=== PATIENT | female | born 1995 | race Caucasian/White ===

== ENCOUNTER 2017-10-12 11:12 | Emergency (ER) | payer BC ==
[2017-10-12 11:38] VITALS: BP 130/74; PULSE 78; O2SAT 97
--- NOTE | 2017-10-12 12:31 | ERPHSYRPT ---
- History of Present Illness Time Seen by Provider: 10/12/17 12:21 Historian: patient Exam Limitations: no limitations Patient Subjective Stated Complaint: nausea for two days. states has been taking ibuprophen 600 mg every six hours for three days for a toothache. denies any vomiting. also having small amt diarrhea today. Triage Nursing Assessment: ambulated to room per self. skin w/d, color normal, resp easy. abd soft, nontender. Physician History: The patient is a 22-year-old female who is breast-feeding her 1-1/2 month old son complaining that she developed nausea and diarrhea that began yesterday. She denies vomiting. She denies fever or chills. She has had 5 loose stools over the past 2 days. She is here visiting family members and would like something for the nausea that is compatible with breast-feeding. She does not want any lab work. Her past medical history is unremarkable. Timing/Duration: yesterday Activities at Onset: none Quality: aching Abdominal Pain Onset Location: epigastric Pain Radiation: no radiation Severity of Pain-Max: mild Severity of Pain-Current: mild Modifying Factors: Improves With: nothing Associated Symptoms: diarrhea, nausea, No vomiting Previous symptoms: no prior history Hx Tetanus, Diphtheria Vaccination/Date Given: No Hx Influenza Vaccination/Date Given: No Hx Pneumococcal Vaccination/Date Given: No - Review of Systems Constitutional: No Fever, No Chills Eyes: No Symptoms Ears, Nose, & Throat: No Symptoms Respiratory: No Cough, No Dyspnea Cardiac: No Chest Pain, No Edema, No Syncope Abdominal/Gastrointestinal: Nausea, Diarrhea, No Vomiting Genitourinary Symptoms: No Dysuria Musculoskeletal: No Back Pain, No Neck Pain Skin: No Rash Neurological: No Dizziness, No Focal Weakness, No Sensory Changes Psychological: No Symptoms Endocrine: No Symptoms Hematologic/Lymphatic: No Symptoms Immunological/Allergic: No Symptoms All Other Systems: Reviewed and Negative - Past Medical History Pertinent Past Medical History: No - Past Surgical History Past Surgical History: No - Social History Smoking Status: Never smoker Exposure to second hand smoke: Yes Drug Use: none Patient Lives Alone: No - Female History Hx Now: No (childbirth one month ago) - Nursing Vital Signs Nursing Vital Signs: Initial Vital Signs Temperature 97.9 F 10/12/17 11:18 Pulse Rate 78 10/12/17 11:18 Respiratory Rate 16 10/12/17 11:18 Blood Pressure 130/74 10/12/17 11:18 O2 Sat by Pulse Oximetry 97 10/12/17 11:18 Pain Scale Pain Intensity 2 - Physical Exam General Appearance: no apparent distress, alert Eye Exam: PERRL/EOMI, eyes nml inspection Ears, Nose, Throat Exam: normal ENT inspection, pharynx normal, moist mucous membranes Neck Exam: normal inspection, non-tender, supple, full range of motion Respiratory Exam: normal breath sounds, lungs clear, No respiratory distress Cardiovascular Exam: regular rate/rhythm, normal heart sounds Gastrointestinal/Abdomen Exam: soft, No tenderness, No mass Pelvic Exam: not done Rectal Exam: not done Back Exam: normal inspection, normal range of motion, No CVA tenderness, No vertebral tenderness Extremity Exam: normal inspection, normal range of motion, pelvis stable Neurologic Exam: alert, oriented x 3, cooperative, normal mood/affect, nml cerebellar function, sensation nml, No motor deficits Skin Exam: normal color, warm, dry SpO2 Interpretation: normal SpO2: 97 Oxygen Delivery: Room Air - Progress Progress: improved Progress Note: 10/12/17 12:33 pt declines lab draw. pt given zofran 4 mg ODT. Counseled pt/family regarding: diagnosis - Departure Time of Disposition: 12:34 Departure Disposition: Home Clinical Impression: Gastroenteritis Condition: Stable Critical Care Time: No Referrals: JAIMIE BOUCHER [Primary Care Provider] - Additional Instructions: You have gastroenteritis. You were given Zofran 4 mg ODT in the ER. Take Zofran 4 mg ODT every 6 hours as needed. Take Tylenol as needed for pain. Follow up with your primary medical doctor as needed. Prescriptions: Ondansetron ODT 4 MG [Zofran Odt 4 mg] 1 tab PO Q6H PRN PRN #6 tab.rapdis PRN Reason: Nausea/Vomiting
[2017-10-12] MEDS ORDERED: ZOFRAN ODT 4 MG ONE (12:43)
[2017-10-12] MEDS: ZOFRAN ODT 4 MG PO ONE (12:44)
== END 2017-10-12 12:48 | disposition home or self-care (01) ==
LOC: ED 11:12
DX: K52.9 Noninfective gastroenteritis and colitis, unspecified (principal)
CPT/HCPCS: 99283; Q0162

== ENCOUNTER 2021-08-23 11:58 | Emergency (ER) | payer OTHER ==
[2021-08-23 12:08] VITALS: O2SAT 98
[2021-08-23] MEDS ORDERED: KEFLEX 250 MG/5 ML SUSP PO ONE (12:20)
[2021-08-23] MEDS ORDERED: NORCO 5/325 MG PO ONE (12:20)
--- NOTE | 2021-08-23 12:28 | ERPHSYRPT ---
- History of Present Illness Time Seen by Provider: 08/23/21 12:23 Source: patient Exam Limitations: no limitations Patient Subjective Stated Complaint: Pt states "This has been going on for a couple weeks, my upper left jaw is hurting and the pain was really bad then went away and now it is worse. I am not sure if it is my wisdom teeth or not." Triage Nursing Assessment: Pt presented alert and oriented X 3, skin wpd Pt ambulates with an upright steady gait, able to speak in clear full sentences pt in no apparent respiratory distress. Pt left upper jaw slightly red, swollen and tender. Physician History: This is a 26-year-old white female who has had left jaw pain for approximately 2 weeks. It would intermittently improve over the last couple weeks but then recur. This morning, the pain was much more severe and there was associated left jaw swelling. She has an appointment to see a dentist but that is on October 01, 2021. Patient is not allergic to any antibiotics or pain medicine. She has been taking ibuprofen and it is only mildly helping. Timing/Duration: gradual onset, weeks (2) Severity: moderate ENT Location: facial (left) Prearrival Treatment: over the counter meds Modifying Factors: Improves With: nothing Associated Symptoms: ear pain (L), tooth pain (Left upper molars), other (Left jaw pain) Allergies/Adverse Reactions: Red food dye Adverse Reaction (Severe, Uncoded 07/20/21 16:05) Rash and face swelling Hx Tetanus, Diphtheria Vaccination/Date Given: No Hx Influenza Vaccination/Date Given: No Hx Pneumococcal Vaccination/Date Given: No Immunizations Up to Date: Yes Travel Risk - International Travel Have you traveled outside of the country in past 3 weeks: No - Coronavirus Screening Are you exhibiting any of the following symptoms?: No Close contact with a COVID-19 positive Pt in past 14-21 Days: No - Vaccine Status Have you recieved a Covid-19 vaccination: Yes 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: [employer] - Vaccination Dates Date of 2cond Vaccination (if applicable): 2020 - Review of Systems Constitutional: No Symptoms Eyes: No Symptoms Ears, Nose, & Throat: Ear Pain (Left), Other (Left jaw pain) Respiratory: No Symptoms Cardiac: No Symptoms Abdominal/Gastrointestinal: No Symptoms Genitourinary Symptoms: No Symptoms Musculoskeletal: No Symptoms Skin: No Symptoms Neurological: No Symptoms Psychological: No Symptoms Endocrine: No Symptoms Hematologic/Lymphatic: No Symptoms Immunological/Allergic: No Symptoms All Other Systems: Reviewed and Negative - Past Medical History Pertinent Past Medical History: No Neurological History: No Pertinent History ENT History: No Pertinent History Cardiac History: No Pertinent History Respiratory History: No Pertinent History Endocrine Medical History: No Pertinent History Musculoskeletal History: No Pertinent History GI Medical History: No Pertinent History History: No Pertinent History Psycho-Social History: No Pertinent History Female Reproductive Disorders: No Pertinent History - Past Surgical History Past Surgical History: No Neuro Surgical History: No Pertinent History Cardiac: No Pertinent History Respiratory: No Pertinent History Gastrointestinal: No Pertinent History Genitourinary: No Pertinent History Musculoskeletal: No Pertinent History Female Surgical History: No Pertinent History - Social History Smoking Status: Current every day smoker How long have you smoked: 5 YEARS Exposure to second hand smoke: Yes Drug Use: none Patient Lives Alone: No - Female History Hx Last Menstrual Period: 08/18/2021 Hx Now: No - Nursing Vital Signs Nursing Vital Signs: Initial Vital Signs Temperature 97.8 F 08/23/21 12:03 Pulse Rate 100 H 08/23/21 12:03 Respiratory Rate 20 08/23/21 12:03 Blood Pressure 147/107 08/23/21 12:03 O2 Sat by Pulse Oximetry 98 08/23/21 12:03 Pain Scale Pain Intensity [Left Upper Jaw 7 ] Pain Intensity 7 - Physical Exam General Appearance: no apparent distress, alert, anxiety Eye Exam: bilateral eye: normal inspection, PERRL, EOMI Ear Exam: bilateral ear: auricle normal, canal normal, TM normal Nasal Exam: normal inspection Throat Exam: pharynx normal, dental tenderness (Left upper molars) Neck Exam: normal inspection, non-tender, supple, full range of motion, trachea midline Cardiovascular/Respiratory Exam: chest non-tender, no respiratory distress Abdominal Exam: non-tender Neurologic Exam: alert, oriented x 3, 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 Follow-up with a dentist for definitive care. Take your antibiotics as prescribed. Prescriptions: Hydrocodone/APAP 5/325 [[place] 5/325 mg] 1 each PO Q8H PRN PRN #6 tablet MDD 3 PRN Reason: Pain Cephalexin Mh 500 mg [Keflex 500 mg] 500 mg PO TID #21 cap
[2021-08-23] MEDS ORDERED: NORCO 5/325 MG ONE (12:34)
[2021-08-23] MEDS ORDERED: KEFLEX 250 MG/5 ML SUSP ONE (12:34)
[2021-08-23] MEDS ORDERED: KEFLEX 500 MG PO ONE (12:35)
[2021-08-23] MEDS ORDERED: KEFLEX 500 MG ONE (12:38)
[2021-08-23 12:44] VITALS: BP 124/87; PULSE 86
== END 2021-08-23 12:44 | disposition home or self-care (01) ==
LOC: ED 11:58
DX: K08.89 Other specified disorders of teeth and supporting structures (principal); R68.84 Jaw pain; R60.0 Localized edema; Z72.0 Tobacco use; Z79.891 Long term (current) use of opiate analgesic
CPT/HCPCS: 99283; A9270-GY

== ENCOUNTER 2023-02-24 04:51 | Emergency (ER) | payer MEDICAID, OTHER ==
[2023-02-24 04:57] VITALS: TEMP 98.1
[2023-02-24] MEDS ORDERED: Zofran 4 MG/2 ML VIAL IV ONE (05:50)
--- NOTE | 2023-02-24 05:50 | ERPHSYRPT ---
- History of Present Illness Source: patient Exam Limitations: no limitations Patient Subjective Stated Complaint: light headed, dizzy, nauseated, coughing, diarrhea that started few weeks ago but the dizziness started 4 hours ago. states comes in waves. Triage Nursing Assessment: Patient states that for the last 4 hours she has been experiencing feeling of light headedness, dizziness, nausea, and diarrhea. Took a Tums at home with no relief. States has been feeling congested with coughing and shortness of breath for last 2 weeks that comes and goes. Timing/Duration: today Severity: moderate Modifying Factors: Improves With: nothing Associated Symptoms: denies symptoms Hx Tetanus, Diphtheria Vaccination/Date Given: No Hx Influenza Vaccination/Date Given: No Hx Pneumococcal Vaccination/Date Given: No Immunizations Up to Date: No <HINA LUKE - Last Filed: 02/24/23 06:40> <JOHN DIAZ - Last Filed: 02/24/23 09:00> - History of Present Illness Time Seen by Provider: 02/24/23 05:00 Physician History: Patient is a 27-year-old female presents to our ED via EMS for evaluation of acute onset dizziness nausea heart palpitations shortness of breath that started at 4 AM this morning. Patient states that her dizziness is constant. However she feels that it is somewhat exacerbated with head motion. No focal or lateralizing symptoms. Symptoms are moderate in intensity. No specific worsening or improving factors. Patient otherwise feels well. She voices no other complaints or concerns at this time. Portions of this note were created with voice recognition technology. There may be grammatical, spelling, punctuation or sound alike errors (HINA LUKE) Allergies/Adverse Reactions: Red food dye Adverse Reaction (Severe, Uncoded 02/24/23 05:14) Rash and face swelling Travel Risk - International Travel Have you traveled outside of the country in past 3 weeks: No - Coronavirus Screening Symptoms: Cough: New Onset, Shortness of Breath, Vomiting/Diarrhea Close contact with a COVID-19 positive Pt in past 14-21 Days: No - Vaccine Status Have you recieved a Covid-19 vaccination: Yes Receiving Checker: Unknown - Vaccination Dates Date of 2cond Vaccination (if applicable): n/a Dates if Unknown: N/a <HINA LUKE - Last Filed: 02/24/23 06:40> - Review of Systems Constitutional: No Symptoms, No Fever, No Chills Eyes: No Symptoms Ears, Nose, & Throat: No Symptoms Respiratory: No Symptoms, No Cough, No Dyspnea Cardiac: No Symptoms, No Chest Pain, No Edema, No Syncope Abdominal/Gastrointestinal: No Symptoms, No Abdominal Pain, No Nausea, No Vomiting, No Diarrhea Genitourinary Symptoms: No Symptoms, No Dysuria Musculoskeletal: No Symptoms, No Back Pain, No Neck Pain Skin: No Symptoms, No Rash Neurological: No Symptoms, No Dizziness, No Focal Weakness, No Sensory Changes Psychological: No Symptoms Endocrine: No Symptoms Hematologic/Lymphatic: No Symptoms Immunological/Allergic: No Symptoms All Other Systems: Reviewed and Negative <HINA LUKE - Last Filed: 02/24/23 06:40> - Past Medical History Pertinent Past Medical History: Yes Neurological History: No Pertinent History ENT History: No Pertinent History Cardiac History: No Pertinent History Respiratory History: No Pertinent History Endocrine Medical History: No Pertinent History Musculoskeletal History: No Pertinent History GI Medical History: GERD History: No Pertinent History Psycho-Social History: Anxiety Female Reproductive Disorders: No Pertinent History Other Medical History: Failed a Tilt table cardiac test - Past Surgical History Past Surgical History: No Neuro Surgical History: No Pertinent History Cardiac: No Pertinent History Respiratory: No Pertinent History Gastrointestinal: No Pertinent History Genitourinary: No Pertinent History Musculoskeletal: No Pertinent History Female Surgical History: No Pertinent History - Social History Smoking Status: Former smoker How long have you smoked: 5 YEARS Exposure to second hand smoke: Yes Drug Use: none Patient Lives Alone: No - Female History Hx Last Menstrual Period: 02/23/23 Hx Now: No <HINA LUKE - Last Filed: 02/24/23 06:40> - Physical Exam General Appearance: no apparent distress, alert Eye Exam: PERRL/EOMI, eyes nml inspection Ears, Nose, Throat Exam: normal ENT inspection, TMs normal, pharynx normal, mois t mucous membranes Neck Exam: normal inspection, non-tender, supple, full range of motion Respiratory Exam: normal breath sounds, lungs clear, No respiratory distress Cardiovascular Exam: regular rate/rhythm, normal heart sounds, normal peripheral pulses Gastrointestinal/Abdomen Exam: soft, normal bowel sounds, No tenderness, No mass Back Exam: normal inspection, normal range of motion, No CVA tenderness, No vertebral tenderness Extremity Exam: normal inspection, normal range of motion, pelvis stable Neurologic Exam: alert, oriented x 3, cooperative, normal mood/affect, nml cerebellar function, nml station & gait, sensation nml, No motor deficits Skin Exam: normal color, warm, dry, No rash Lymphatic Exam: No adenopathy SpO2 Interpretation: normal SpO2: 98 O2 Delivery: Room Air <[facility] Filed: 02/24/23 06:40> - Nursing Vital Signs Nursing Vital Signs: Initial Vital Signs Temperature 98.1 F 02/24/23 04:56 Pulse Rate 109 H 02/24/23 04:56 Respiratory Rate 18 02/24/23 04:56 Blood Pressure 135/90 02/24/23 04:56 O2 Sat by Pulse Oximetry 98 02/24/23 04:56 Pain Scale Pain Intensity 0 - Course Nursing assessment & vital signs reviewed: Yes EKG Interpreted by Me: RATE (110), Sinus Tach, NORMAL AXIS, NORMAL INTERVALS [facility] Filed: 02/24/23 06:40> Ordered Tests: Active Orders 24 hr Category Date Time Status Harmonica Maker STAT Care 02/24/23 05:38 Active IV Insertion STAT Care 02/24/23 05:[address] ANGIOGRAPHY NECK [CT] Stat Exams 02/24/23 05:43 Completed CTA HEAD W AND/OR WO CONTRAST [CT] Stat Exams 02/24/23 05:41 Completed CBC W DIFF Stat Lab 02/24/23 05:50 Completed CMP Stat Lab 02/24/23 05:50 Completed D-DIMER QUANTITATIVE Stat Lab 02/24/23 05:50 Completed HCG QUALITATIVE, URINE Stat Lab 02/24/23 05:57 Completed TROPONIN Q4H Lab 02/24/23 05:50 Completed TROPONIN Q4H Lab 02/24/23 09:45 Ordered TROPONIN Q4H Lab 02/24/23 13:45 Ordered Urine Triage Profile Stat Lab 02/24/23 05:57 Completed Medication Summary Discontinued Medications Generic Name Dose Route Start Last Admin Trade Name Freq PRN Reason Stop Dose Admin Sodium Chloride 1,000 mls @ 999 mls/hr 02/24/23 06:42 02/24/23 08:06 Sodium Chloride 0.9% 1000 Ml IV 02/24/23 07:42 Infused .Q1H1M STA Infusion Sodium Chloride Confirm 02/24/23 06:57 Sodium Chloride 0.9% 1000 Ml Administered 02/24/23 06:58 Dose 1,000 mls @ ud .ROUTE .STK-MED ONE Meclizine HCl 25 mg 02/24/23 05:51 02/24/23 06:20 Meclizine Hcl 25 Mg Tablet PO 02/24/23 05:52 25 mg STAT ONE Administration Meclizine HCl Confirm 02/24/23 06:18 Meclizine Hcl 25 Mg Tablet Administered 02/24/23 06:19 Dose 25 mg .ROUTE .STK-MED ONE Ondansetron HCl 4 mg 02/24/23 05:50 02/24/23 06:20 Ondansetron Hcl 4 Mg/2 Ml Vial IV 02/24/23 05:51 4 mg STAT ONE Administration Ondansetron HCl Confirm 02/24/23 06:18 Ondansetron Hcl 4 Mg/2 Ml Vial Administered 02/24/23 06:19 Dose 4 mg .ROUTE .STK-MED ONE Lab/Rad Data: Laboratory Result Diagrams 02/24/23 05:50 02/24/23 05:50 Laboratory Results 02/24/23 02/24/23 02/24/23 Range/Units 05:58 05:57 05:57 WBC (4.0-10.5) x10^3/uL RBC (4.1-5.4) x10^6/uL Hgb (12.0-16.0) g/dL Hct (35-47) % MCV (78-100) fL MCH (26-32) pg MCHC (32-36) g/dL RDW (11.5-14.0) % Plt Count (150-450) x10^3/uL MPV (7.5-11.0) fL Gran % (36.0-66.0) % Immature Gran % (Auto) (0.00-0.4) % Nucleat RBC Rel Count (0.00-0.1) % Eos # (Auto) (0-0.5) x10^3/uL Immature Gran # (Auto) (0.00-0.03) x10^3u/L Absolute Lymphs (auto) (1.0-4.6) x10^3/uL Absolute Monos (auto) (0.0-1.3) x10^3/uL Absolute Nucleated RBC (0.00-0.01) x10^3u/L Lymphocytes % (24.0-44.0) % Monocytes % (0.0-12.0) % Eosinophils % (0.00-5.0) % Basophils % (0.0-0.4) % Absolute Granulocytes (1.4-6.9) x10^3/uL Basophils # (0-0.4) x10^3/uL D-Dimer (0.0-0.50) mg/L Sodium (137-145) mmol/L Potassium (3.5-5.1) mmol/L Chloride (98-107) mmol/L Carbon Dioxide (22-30) mmol/L Anion Gap (5-15) MEQ/L BUN (7-17) mg/dL Creatinine (0.52-1.04) mg/dL Estimated GFR ML/MIN Glucose (74-106) mg/dL Calcium (8.4-10.2) mg/dL Total Bilirubin (0.2-1.3) mg/dL AST (14-36) U/L ALT (0-35) U/L Alkaline Phosphatase (38-126) U/L Troponin I (0.000-0.034) ng/mL Serum Total Protein (6.3-8.2) g/dL Albumin (3.5-5.0) g/dL Urine HCG, Qual NEGATIVE (NEGATIVE) Urine Opiates Level NEGATIVE (NEGATIVE) Ur Methadone NEGATIVE (NEGATIVE) Urine Barbiturates NEGATIVE (NEGATIVE) Ur Phencyclidine (PCP) NEGATIVE (NEGATIVE) Urine Amphetamine NEGATIVE (NEGATIVE) U Benzodiazepine Level NEGATIVE (NEGATIVE) Urine Cocaine NEGATIVE (NEGATIVE) Urine Marijuana (THC) NEGATIVE (NEGATIVE) Influenza Type A Ag NEGATIVE (NEGATIVE) Influenza Type B Ag NEGATIVE (NEGATIVE) RSV (PCR) NEGATIVE (NEGATIVE) SARS-CoV-2 (PCR) NEGATIVE (NEGATIVE) 02/24/23 02/24/23 02/24/23 Range/Units 05:50 05:50 05:50 WBC (4.0-10.5) x10^3/uL RBC (4.1-5.4) x10^6/uL Hgb (12.0-16.0) g/dL Hct (35-47) % MCV (78-100) fL MCH (26-32) pg MCHC (32-36) g/dL RDW (11.5-14.0) % Plt Count (150-450) x10^3/uL MPV (7.5-11.0) fL Gran % (36.0-66.0) % Immature Gran % (Auto) (0.00-0.4) % Nucleat RBC Rel Count (0.00-0.1) % Eos # (Auto) (0-0.5) x10^3/uL Immature Gran # (Auto) (0.00-0.03) x10^3u/L Absolute Lymphs (auto) (1.0-4.6) x10^3/uL Absolute Monos (auto) (0.0-1.3) x10^3/uL Absolute Nucleated RBC (0.00-0.01) x10^3u/L Lymphocytes % (24.0-44.0) % Monocytes % (0.0-12.0) % Eosinophils % (0.00-5.0) % Basophils % (0.0-0.4) % Absolute Granulocytes (1.4-6.9) x10^3/uL Basophils # (0-0.4) x10^3/uL D-Dimer 0.26 (0.0-0.50) mg/L Sodium 139 (137-145) mmol/L Potassium 3.7 (3.5-5.1) mmol/L Chloride 104 (98-107) mmol/L Carbon Dioxide 23 (22-30) mmol/L Anion Gap 15.7 H (5-15) MEQ/L BUN 13 (7-17) mg/dL Creatinine 0.78 (0.52-1.04) mg/dL Estimated GFR 108.0 ML/MIN Glucose 100 (74-106) mg/dL Calcium 10.0 (8.4-10.2) mg/dL Total Bilirubin 0.90 (0.2-1.3) mg/dL AST 22 (14-36) U/L ALT 15 (0-35) U/L Alkaline Phosphatase 86 (38-126) U/L Troponin I < 0.012 (0.000-0.034) ng/mL Serum Total Protein 8.2 (6.3-8.2) g/dL Albumin 4.6 (3.5-5.0) g/dL Urine HCG, Qual (NEGATIVE) Urine Opiates Level (NEGATIVE) Ur Methadone (NEGATIVE) Urine Barbiturates (NEGATIVE) Ur Phencyclidine (PCP) (NEGATIVE) Urine Amphetamine (NEGATIVE) U Benzodiazepine Level (NEGATIVE) Urine Cocaine (NEGATIVE) Urine Marijuana (THC) (NEGATIVE) Influenza Type A Ag (NEGATIVE) Influenza Type B Ag (NEGATIVE) RSV (PCR) (NEGATIVE) SARS-CoV-2 (PCR) (NEGATIVE) 02/24/23 Range/Units 05:50 WBC 13.2 H (4.0-10.5) x10^3/uL RBC 4.66 (4.1-5.4) x10^6/uL Hgb 13.3 (12.0-16.0) g/dL Hct 40.3 (35-47) % MCV 86.5 (78-100) fL MCH 28.5 (26-32) pg MCHC 33.0 (32-36) g/dL RDW 11.9 (11.5-14.0) % Plt Count 386 (150-450) x10^3/uL MPV 9.6 (7.5-11.0) fL Gran % 79.0 H (36.0-66.0) % Immature Gran % (Auto) 0.4 (0.00-0.4) % Nucleat RBC Rel Count 0.0 (0.00-0.1) % Eos # (Auto) 0.06 (0-0.5) x10^3/uL Immature Gran # (Auto) 0.05 H (0.00-0.03) x10^3u/L Absolute Lymphs (auto) 1.88 (1.0-4.6) x10^3/uL Absolute Monos (auto) 0.74 (0.0-1.3) x10^3/uL Absolute Nucleated RBC 0.00 (0.00-0.01) x10^3u/L Lymphocytes % 14.2 L (24.0-44.0) % Monocytes % 5.6 (0.0-12.0) % Eosinophils % 0.5 (0.00-5.0) % Basophils % 0.3 (0.0-0.4) % Absolute Granulocytes 10.45 H (1.4-6.9) x10^3/uL Basophils # 0.04 (0-0.4) x10^3/uL D-Dimer (0.0-0.50) mg/L Sodium (137-145) mmol/L Potassium (3.5-5.1) mmol/L Chloride (98-107) mmol/L Carbon Dioxide (22-30) mmol/L Anion Gap (5-15) MEQ/L BUN (7-17) mg/dL Creatinine (0.52-1.04) mg/dL Estimated GFR ML/MIN Glucose (74-106) mg/dL Calcium (8.4-10.2) mg/dL Total Bilirubin (0.2-1.3) mg/dL AST (14-36) U/L ALT (0-35) U/L Alkaline Phosphatase (38-126) U/L Troponin I (0.000-0.034) ng/mL Serum Total Protein (6.3-8.2) g/dL Albumin (3.5-5.0) g/dL Urine HCG, Qual (NEGATIVE) Urine Opiates Level (NEGATIVE) Ur Methadone (NEGATIVE) Urine Barbiturates (NEGATIVE) Ur Phencyclidine (PCP) (NEGATIVE) Urine Amphetamine (NEGATIVE) U Benzodiazepine Level (NEGATIVE) Urine Cocaine (NEGATIVE) Urine Marijuana (THC) (NEGATIVE) Influenza Type A Ag (NEGATIVE) Influenza Type B Ag (NEGATIVE) RSV (PCR) (NEGATIVE) SARS-CoV-2 (PCR) (NEGATIVE) - Progress Progress: improved Counseled pt/family regarding: lab results, diagnosis <HINA LUKE - Last Filed: 02/24/23 06:40> <JOHN DIAZ - Last Filed: 02/24/23 09:00> - Progress Progress Note: Patient is a 27-year-old female presents to the emergency department for evaluation of acute onset dizziness heart palpitations shortness of breath. Physical exam essentially nonremarkable. CBC reveals a leukocytosis of 13.2. However no obvious nidus of infection observed. No fever. CMP nonremarkable. D-dimer negative. CTA head neck pending. Patient will have telemetry neuro consultation after imaging study results. Patient given meclizine for dizziness and Zofran for nausea. IV fluids to be administered after CTA. Is currently the change of shift. Patient will be endorsed to incoming physician Dr. Diaz for final disposition. Portions of this note were created with voice recognition technology. There may be grammatical, spelling, punctuation or sound alike errors Complexity of problem addressed is moderate acute complicated Critical care time Complexity of data reviewed and analyzed is extensive. Test ordered test reviewed. Results analyzed and correlated clinically with history and physical examination. However imaging study pending. Telemetry neuro consultation pending as well Risk of complication and or risk of morbidity/mortality of patient management is moderate. Patient endorsed to Dr. Ngo. Vital stable at time of endorsement. Time spent to transfer care is approximately 10 minutes. Plan of care discussed with patient and established for shared decision making. Final disposition pending. However patient has no social determinants of health present to impede follow- up. Portions of this note were created with voice recognition technology. There may be grammatical, spelling, punctuation or sound alike errors 02/24/23 06:41 (HINA LUKE) 02/24/23 08:57 I spoke with the teleneurologist and I reviewed the results of the CTA which she had not known. She believes the patient has peripheral vertigo and not any issue centrally. She did say she cannot rule out an entity such as MS but the neurologist feels that the patient does not require inpatient work-up. Patient is to follow-up with her primary care provider. We will remotely send a prescription for Zofran and meclizine to her pharmacy. Patient currently is at baseline with no complaints or evidence of any nausea or dizziness (JOHN DIAZ) Medical Desision Making - Diagnostic Testing Diagnostic test were ordered, analyzed, and reviewed by me: Yes Radiological Interpretation: Reviewed by me, Teleradiologist Report - Risk of complications The pt has a mod risk of morbidity or mortality based on: Need for prescription drug management <JOHN DIAZ - Last Filed: 02/24/23 09:00> - Departure Critical Care Time: No <HINA LUKE - Last Filed: 02/24/23 06:40> <JOHN DIAZ - Last Filed: 02/24/23 09:00> - Departure Clinical Impression: Dizziness, SOB (shortness of breath), Heart palpitations, Leukocytosis Condition: Stable Referrals: DOCTOR,NO FAMILY [Primary Care Provider] - Follow up/PCP as directed CLINT CARR MD [ACTIVE STAFF] - Follow up/PCP as directed Prescriptions: Ondansetron ODT 4 MG [Zofran Odt 4 mg] 4 mg PO Q6H PRN PRN #10 tablet PRN Reason: Vomiting Meclizine HCl 25 mg [Antivert 25 mg] 25 mg PO Q8H PRN #10 tablet PRN Reason: Dizziness
[2023-02-24] MEDS ORDERED: ANTIVERT 25 MG PO ONE (05:51)
[2023-02-24 06:01] LABS: Absolute Neutrophil Ct (ANC) 10.45 x10^3/uL (1.4-6.9); BASOPHIL % 0.3 % (0.0-0.4); Basophil (Absolute #) 0.04 x10^3/uL (0-0.4); Eosinophil % 0.5 % (0.00-5.0); Eosinophil (Absolute #) 0.06 x10^3/uL (0-0.5); Hematocrit 40.3 % (35-47); Hemoglobin 13.3 g/dL (12.0-16.0); IMMATURE GRAN # 0.05 x10^3u/L (0.00-0.03); IMMATURE GRAN % 0.4 % (0.00-0.4); Lymphocyte (Absolute #) 1.88 x10^3/uL (1.0-4.6); Lymphocytes % 14.2 % (24.0-44.0); Mean Cell Volume 86.5 fL (78-100); Mean Corpuscular Hemoglobin 28.5 pg (26-32); Mean Platelet Volume 9.6 fL (7.5-11.0); Monocyte (Absolute #) 0.74 x10^3/uL (0.0-1.3); Monocytes % 5.6 % (0.0-12.0); Platelet Count 386 x10^3/uL (150-450); Red Blood Count 4.66 x10^6/uL (4.1-5.4); Red Cell Distribution Width 11.9 % (11.5-14.0); White Blood Count 13.2 x10^3/uL (4.0-10.5)
[2023-02-24 06:12] LABS: HCG URINE TEST NEGATIVE (NEGATIVE)
[2023-02-24 06:18] LABS: ALBUMIN 4.6 g/dL (3.5-5.0); BILIRUBIN,TOTAL 0.9 mg/dL (0.2-1.3); Creatinine 1 0.78 mg/dL (0.52-1.04); Total Protein 8.2 g/dL (6.3-8.2)
[2023-02-24] MEDS ORDERED: Zofran 4 MG/2 ML VIAL ONE (06:18)
[2023-02-24] MEDS ORDERED: ANTIVERT 25 MG ONE (06:18)
[2023-02-24 06:20] LABS: Potassium 3.7 mmol/L (3.5-5.1)
[2023-02-24 06:21] LABS: ANION GAP 15.7 MEQ/L (5-15)
[2023-02-24 06:21] LABS: Amphetamine,Urine NEGATIVE (NEGATIVE); Barbiturate,Urine NEGATIVE (NEGATIVE); Benzodiazepine,Urine NEGATIVE (NEGATIVE); Cocaine,Urine NEGATIVE (NEGATIVE); Methadone,Urine NEGATIVE (NEGATIVE); Opiate,Urine NEGATIVE (NEGATIVE); PCP,Urine NEGATIVE (NEGATIVE); THC,Urine NEGATIVE (NEGATIVE)
[2023-02-24 06:39] LABS: INFLUENZA A NEGATIVE (NEGATIVE); INFLUENZA B NEGATIVE (NEGATIVE); RESPIRATORY SYNCTIAL VIRUS NEGATIVE (NEGATIVE); SARS-CoV-2 Xpert Express NEGATIVE (NEGATIVE)
[2023-02-24] MEDS ORDERED: Sodium Chloride 0.9% 1000 ML 1,000 ML IV STA (06:42)
[2023-02-24] MEDS ORDERED: Sodium Chloride 0.9% 1000 ML 1,000 ML ONE (06:57)
--- NOTE | 2023-02-24 08:00 | XRAY ---
CLINICAL HISTORY:dizziness COMPARISON:None TECHNIQUE:Multiplanar CT angiography neck was performed with contrast administration for interpretation. FINDINGS: Neck region bilateral CCA, ICA, and ECA are patent. No evidence of hemodynamic significant stenosis or occlusion. Bilateral tortuous ICA above the carotid bulb noted. Neck region bilateral visualized vertebral artery are patent. No obvious abnormality. Left vertebral artery dominance noted. Incidental finding of lingual and tonsillar mild to moderate hypertrophy noted. Additional neck region multiple lymph nodes up to 1.8 x 1 cm also is present. Please correlate clinically. IMPRESSION: No evidence of significant stenosis or vascular lesion. Incidental finding of lingual and tonsillar mild to moderate hypertrophy noted. Additional neck region multiple lymph nodes up to 1.8 x 1 cm also is present. Please correlate clinically. Electronically Signed by: Erasto Nieto MD. (02/24/2023 06:59:31 SENIOR COST ACCOUNTANT)
--- NOTE | 2023-02-24 08:26 | XRAY ---
CLINICAL HISTORY:Dizziness COMPARISON:None TECHNIQUE:Multiplanar CT Angiography head was performed with contrast administration for interpretation. FINDINGS: Bilateral MCA, GABRIEL, [employer] DEVELOPER are patent. No evidence of occlusion or aneurysmal lesion. Bilateral vertebral artery V4 segment are patent. Basilar artery patent with normal calibration. No evidence of occlusion or aneurysmal lesion. Mild mucosal thickening of left maxillary sinus, ethmoid cells and left frontoethmoidal recess noted. Please correlate clinically. Incidental finding: Rounded soft tissue density area measures 1.0 x 0.9 x 0.6 cm seen in the scalp just right of the midline in the region of vertex. A similar density area was also noted anterior to the above-described lesion. These are likely benign findings, differential include epidermoid inclusion cysts however needs further evaluation. IMPRESSION: Anterior and posterior circulation arteries are patent. No aneurysmal lesion or occlusion. Rounded soft tissue density area measures 1.0 x 0.9 x 0..6 cm seen in the scalp just right of the midline in the region of vertex. A similar density area was also noted anterior to the above-described lesion. These are likely benign findings, differential include epidermoid inclusion cysts however needs further evaluation with ultrasound and MRI If clinically indicated. Mild mucosal thickening of left maxillary sinus, ethmoid cells, and left frontoethmoidal recess noted. Please correlate clinically. Electronically Signed by: Erasto Nieto MD. (02/24/2023 07:25:16 AIR HOIST OPERATOR)
[2023-02-24 09:02] VITALS: BP 110/73; PULSE 79; RESP 17; O2SAT 98
== END 2023-02-24 09:42 | disposition home or self-care (01) ==
LOC: ED 04:51
DX: R42 Dizziness and giddiness (principal); R06.02 Shortness of breath; R00.2 Palpitations; D72.829 Elevated white blood cell count, unspecified; R11.0 Nausea
CPT/HCPCS: 0241U; 36000; 36415; 70496; 70498; 80053; 80307; 81025; 84484; 85025; 85379; 93041; 96360; 96374; 99284; J2405; A9270-GY

== ENCOUNTER 2023-04-18 06:13 | Emergency (ER) | payer SELFPAY ==
[2023-04-18 06:25] VITALS: TEMP 98.5
[2023-04-18] MEDS ORDERED: Pepcid 20 MG VIAL IV ONE ×2 (06:35→06:39)
--- NOTE | 2023-04-18 06:40 | ERPHSYRPT ---
<FRANSISCO CISSE - Last Filed: 04/18/23 06:59> - History of Present Illness Time Seen by Provider: 04/18/23 06:35 Historian: patient Exam Limitations: no limitations Patient Subjective Stated Complaint: C/O Chest cold for 3 days with new chest pain that started early this am; patient unsure of exact time. Triage Nursing Assessment: Patient ambulated back to ER without difficulties. No SOB. She is alert and oriented; anxious. GRANGER WNL. Skin tone normal. Non- productive cough present. Anterior upper lobes clear; unable to assess lung bases at this time. Physician History: 27 years old female, no past medical history. The patient is presenting to the emergency room accompanied by her complaining of lower sternal squeezing chest pain that started at 5 AM when she woke up from sleep. The pain does not radiate, it is worse when she takes deep breaths. The patient has been having chest congestion for the last 3 days but no fever or chills. She has not taken any medications for her chest pain, at present her pain is much less, she seem to be anxious and in tears. The patient also has been having indigestion with acid reflux lately. She does not take any medications for her stomach or GERD. She vapes, no history of heart diseases in the past. Location: central Chest Pain Radiation: no radiation Severity of Pain-Max: moderate Severity of Pain-Current: none Modifying Factors: Improves With: breathing Associated Symptoms: heartburn, shortness of breath, other (Chest Congestion) Prior Chest Pain/Cardiac Workup: no prior chest pain Nitro Today/Relief: no nitro taken today Aspirin Treatment Today: no aspirin today Allergies/Adverse Reactions: Red food dye Adverse Reaction (Severe, Uncoded 02/24/23 05:14) Rash and face swelling Hx Tetanus, Diphtheria Vaccination/Date Given: Yes Hx Influenza Vaccination/Date Given: No Hx Pneumococcal Vaccination/Date Given: No Immunizations Up to Date: Yes Travel Risk - International Travel Have you traveled outside of the country in past 3 weeks: No - Coronavirus Screening Are you exhibiting any of the following symptoms?: Yes Symptoms: Cough: New Onset, Shortness of Breath Close contact with a COVID-19 positive Pt in past 14-21 Days: No - Vaccine Status Have you recieved a Covid-19 vaccination: Yes 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: [employer] - Vaccination Dates Date of 2cond Vaccination (if applicable): n/a Dates if Unknown: N/a - Review of Systems Constitutional: No Fever, No Chills Eyes: No Symptoms Ears, Nose, & Throat: No Symptoms Respiratory: Other (Chest Congestion), No Cough, No Dyspnea Cardiac: Chest Pain, No Edema, No Syncope Abdominal/Gastrointestinal: Other (GERD Like Symptoms), No Abdominal Pain, No Nausea, No Vomiting, No Diarrhea Genitourinary Symptoms: No Dysuria Musculoskeletal: No Back Pain, No Neck Pain Skin: No Rash Neurological: No Dizziness, No Focal Weakness, No Sensory Changes Psychological: No Symptoms Endocrine: No Symptoms All Other Systems: Reviewed and Negative - Past Medical History Pertinent Past Medical History: Yes Neurological History: No Pertinent History ENT History: No Pertinent History Cardiac History: No Pertinent History Respiratory History: No Pertinent History Endocrine Medical History: No Pertinent History Musculoskeletal History: No Pertinent History GI Medical History: GERD History: No Pertinent History Psycho-Social History: Anxiety Female Reproductive Disorders: No Pertinent History Other Medical History: Failed a Tilt table cardiac test - Past Surgical History Past Surgical History: No Neuro Surgical History: No Pertinent History Cardiac: No Pertinent History Respiratory: No Pertinent History Gastrointestinal: No Pertinent History Genitourinary: No Pertinent History Musculoskeletal: No Pertinent History Female Surgical History: No Pertinent History - Social History Smoking Status: Former smoker How long have you smoked: 5 YEARS Exposure to second hand smoke: Yes Drug Use: none Patient Lives Alone: No - Female History Hx Last Menstrual Period: NOW Hx Now: No - Physical Exam General Appearance: no apparent distress, alert Eye Exam: PERRL/EOMI, eyes nml inspection Ears, Nose, Throat Exam: normal ENT inspection, moist mucous membranes Neck Exam: normal inspection, non-tender, supple, full range of motion Respiratory Exam: normal breath sounds, lungs clear, No respiratory distress Cardiovascular Exam: regular rate/rhythm, normal heart sounds Gastrointestinal/Abdomen Exam: soft, No tenderness, No mass Back Exam: normal inspection, No CVA tenderness, No vertebral tenderness Extremity Exam: normal inspection, normal range of motion Neurologic Exam: alert, oriented x 3, cooperative, normal mood/affect, sensation nml, No motor deficits Skin Exam: normal color, warm, dry SpO2: 100 - Course Nursing assessment & vital signs reviewed: Yes EKG Interpreted by Me: RATE (101), Sinus Tach - Progress Progress Note: 04/18/23 06:45 27 years old female with no past medical history presenting to the emergency room accompanied by her complaining of lower sternal squeezing chest pain that started at 5 AM this morning when she woke up from sleep. The chest pain does not radiate, is worse when she takes deep breaths, she has been having chest congestion for the last couple of days. She has no history of heart disease. She is also having GERD like symptoms. Emergency room course and medical decision making: On arrival the patient had an EKG done which revealed sinus tachycardia at a rate of 101 bpm. At present she is denying any chest pain. She will have a workup including a CBC, CMP, troponin, D-dimer, test, chest x-ray. For her symptoms she will be given Pepcid 20 mg IV. 04/18/23 06:56 The case will be signed out to Dr. Ge at the change of shift. - Departure Clinical Impression: Chest pain, GERD (gastroesophageal reflux disease), Bronchitis Condition: Stable Referrals: DOCTOR,NO FAMILY [Primary Care Provider] - Follow up/PCP as directed Instructions: Cough, Adult (DC), Acid Reflux and GERD in Adults (DC) Prescriptions: Amoxicillin 500 mg PO TID 10 Days #30 tablet PANTOPRAZOLE 40 mg Tablet [Protonix 40MG Tablet] 40 mg PO QAM 15 Days #15 tab <LIZETT GE - Last Filed: 04/18/23 08:13> - Nursing Vital Signs Nursing Vital Signs: Initial Vital Signs Temperature 98.5 F 04/18/23 06:16 Pulse Rate 105 H 04/18/23 06:16 Respiratory Rate 22 04/18/23 06:16 Blood Pressure 133/79 04/18/23 06:16 O2 Sat by Pulse Oximetry 100 04/18/23 06:16 Pain Scale Pain Intensity 0 Ordered Tests: Active Orders 24 hr Category Date Time Status National Sales Associate STAT Care 04/18/23 06:37 Active EKG-ER Only STAT Care 04/18/23 06:35 Active CHEST 1 VIEW (PORTABLE) Stat Exams 04/18/23 06:36 Taken CBC W DIFF Stat Lab 04/18/23 07:00 Completed CMP Stat Lab 04/18/23 07:00 Completed D-DIMER QUANTITATIVE Stat Lab 04/18/23 07:00 Completed HCG QUALITATIVE, SERUM Stat Lab 04/18/23 07:00 Completed PROTIME WITH INR Stat Lab 04/18/23 07:00 Completed PTT Stat Lab 04/18/23 07:00 Completed TROPONIN Q4H Lab 04/18/23 07:00 Completed TROPONIN Q4H Lab 04/18/23 10:45 Ordered TROPONIN Q4H Lab 04/18/23 14:45 Ordered Medication Summary Discontinued Medications Generic Name Dose Route Start Last Admin Trade Name Freq PRN Reason Stop Dose Admin Famotidine 20 mg 04/18/23 06:35 04/18/23 06:40 Famotidine 20 Mg/1 Vial IV 04/18/23 06:36 20 mg STAT ONE Administration Famotidine Confirm 04/18/23 06:39 Famotidine 20 Mg/1 Vial Administered 04/18/23 06:40 Dose 20 mg IV .[employer] ONE Lab/Rad Data: Laboratory Result Diagrams 04/18/23 07:00 04/18/23 07:00 Laboratory Results 04/18/23 04/18/23 04/18/23 Range/Units 07:00 07:00 07:00 WBC (4.0-10.5) x10^3/uL RBC (4.1-5.4) x10^6/uL Hgb (12.0-16.0) g/dL Hct (35-47) % MCV (78-100) fL MCH (26-32) pg MCHC (32-36) g/dL RDW (11.5-14.0) % Plt Count (150-450) x10^3/uL MPV (7.5-11.0) fL Gran % (36.0-66.0) % Immature Gran % (Auto) (0.00-0.4) % Nucleat RBC Rel Count (0.00-0.1) % Eos # (Auto) (0-0.5) x10^3/uL Immature Gran # (Auto) (0.00-0.03) x10^3u/L Absolute Lymphs (auto) (1.0-4.6) x10^3/uL Absolute Monos (auto) (0.0-1.3) x10^3/uL Absolute Nucleated RBC (0.00-0.01) x10^3u/L Lymphocytes % (24.0-44.0) % Monocytes % (0.0-12.0) % Eosinophils % (0.00-5.0) % Basophils % (0.0-0.4) % Absolute Granulocytes (1.4-6.9) x10^3/uL Basophils # (0-0.4) x10^3/uL PT 10.9 (9.4-12.5) SECONDS INR 1.00 (0.8-3.0) APTT 25.8 (25.1-36.5) SECONDS D-Dimer 0.34 (0.0-0.50) mg/L Sodium (137-145) mmol/L Potassium (3.5-5.1) mmol/L Chloride (98-107) mmol/L Carbon Dioxide (22-30) mmol/L Anion Gap (5-15) MEQ/L BUN (7-17) mg/dL Creatinine (0.52-1.04) mg/dL Estimated GFR ML/MIN Glucose (74-106) mg/dL Calcium (8.4-10.2) mg/dL Total Bilirubin (0.2-1.3) mg/dL AST (14-36) U/L ALT (0-35) U/L Alkaline Phosphatase (38-126) U/L Troponin I < 0.012 (0.000-0.034) ng/mL Serum Total Protein (6.3-8.2) g/dL Albumin (3.5-5.0) g/dL Serum HCG, Qual NEGATIVE (NEGATIVE) Influenza Type A Ag (NEGATIVE) Influenza Type B Ag (NEGATIVE) RSV (PCR) (NEGATIVE) SARS-CoV-2 (PCR) (NEGATIVE) 04/18/23 04/18/23 04/18/23 Range/Units 07:00 07:00 07:00 WBC 12.3 H (4.0-10.5) x10^3/uL RBC 4.24 (4.1-5.4) x10^6/uL Hgb 12.1 (12.0-16.0) g/dL Hct 36.7 (35-47) % MCV 86.6 (78-100) fL MCH 28.5 (26-32) pg MCHC 33.0 (32-36) g/dL RDW 11.9 (11.5-14.0) % Plt Count 306 (150-450) x10^3/uL MPV 9.6 (7.5-11.0) fL Gran % 74.2 H (36.0-66.0) % Immature Gran % (Auto) 0.3 (0.00-0.4) % Nucleat RBC Rel Count 0.0 (0.00-0.1) % Eos # (Auto) 0.08 (0-0.5) x10^3/uL Immature Gran # (Auto) 0.04 H (0.00-0.03) x10^3u/L Absolute Lymphs (auto) 2.31 (1.0-4.6) x10^3/uL Absolute Monos (auto) 0.69 (0.0-1.3) x10^3/uL Absolute Nucleated RBC 0.00 (0.00-0.01) x10^3u/L Lymphocytes % 18.8 L (24.0-44.0) % Monocytes % 5.6 (0.0-12.0) % Eosinophils % 0.7 (0.00-5.0) % Basophils % 0.4 (0.0-0.4) % Absolute Granulocytes 9.10 H (1.4-6.9) x10^3/uL Basophils # 0.05 (0-0.4) x10^3/uL PT (9.4-12.5) SECONDS INR (0.8-3.0) APTT (25.1-36.5) SECONDS D-Dimer (0.0-0.50) mg/L Sodium 136 L (137-145) mmol/L Potassium 3.7 (3.5-5.1) mmol/L Chloride 108 H (98-107) mmol/L Carbon Dioxide 20 L (22-30) mmol/L Anion Gap 12.0 (5-15) MEQ/L BUN 12 (7-17) mg/dL Creatinine 0.68 (0.52-1.04) mg/dL Estimated GFR 123.9 ML/MIN Glucose 97 (74-106) mg/dL Calcium 9.1 (8.4-10.2) mg/dL Total Bilirubin 1.10 (0.2-1.3) mg/dL AST 16 (14-36) U/L ALT 10 (0-35) U/L Alkaline Phosphatase 81 (38-126) U/L Troponin I (0.000-0.034) ng/mL Serum Total Protein 7.1 (6.3-8.2) g/dL Albumin 4.0 (3.5-5.0) g/dL Serum HCG, Qual (NEGATIVE) Influenza Type A Ag NEGATIVE (NEGATIVE) Influenza Type B Ag NEGATIVE (NEGATIVE) RSV (PCR) NEGATIVE (NEGATIVE) SARS-CoV-2 (PCR) NEGATIVE (NEGATIVE) - Progress Blood Culture(s) Obtained: No Antibiotics given: Yes Medical Desision Making - Independent Historian Additional History obtained from: Spouse - Diagnostic Testing Diagnostic test were ordered, analyzed, and reviewed by me: Yes Radiological Interpretation: Interpreted by me - Risk of complications Minimal Risk: Minimal risk of morbidity - Departure Departure Disposition: Home Critical Care Time: No
[2023-04-18 07:03] LABS: BASOPHIL % 0.4 % (0.0-0.4); Basophil (Absolute #) 0.05 x10^3/uL (0-0.4); Eosinophil % 0.7 % (0.00-5.0); Eosinophil (Absolute #) 0.08 x10^3/uL (0-0.5); Hematocrit 36.7 % (35-47); Hemoglobin 12.1 g/dL (12.0-16.0); IMMATURE GRAN # 0.04 x10^3u/L (0.00-0.03); IMMATURE GRAN % 0.3 % (0.00-0.4); Lymphocyte (Absolute #) 2.31 x10^3/uL (1.0-4.6); Lymphocytes % 18.8 % (24.0-44.0); Mean Cell Volume 86.6 fL (78-100); Mean Corpuscular Hemoglobin 28.5 pg (26-32); Mean Platelet Volume 9.6 fL (7.5-11.0); Monocyte (Absolute #) 0.69 x10^3/uL (0.0-1.3); Monocytes % 5.6 % (0.0-12.0); Neutrophil % 74.2 % (36.0-66.0); Platelet Count 306 x10^3/uL (150-450); Red Blood Count 4.24 x10^6/uL (4.1-5.4); Red Cell Distribution Width 11.9 % (11.5-14.0); White Blood Count 12.3 x10^3/uL (4.0-10.5)
[2023-04-18 07:17] LABS: HCG SERUM TEST NEGATIVE (NEGATIVE)
[2023-04-18 07:18] LABS: BILIRUBIN,TOTAL 1.1 mg/dL (0.2-1.3); Calcium 9.1 mg/dL (8.4-10.2); Creatinine 1 0.68 mg/dL (0.52-1.04); EST GLOMERULAR FILTRATION RATE 123.9 ML/MIN; Potassium 3.7 mmol/L (3.5-5.1); Total Protein 7.1 g/dL (6.3-8.2)
[2023-04-18 07:20] LABS: D-DIMER QUANTITATIVE 0.34 mg/L (0.0-0.50); PROTIME 10.9 SECONDS (9.4-12.5); PTT 25.8 SECONDS (25.1-36.5)
[2023-04-18 07:39] LABS: INFLUENZA A NEGATIVE (NEGATIVE); INFLUENZA B NEGATIVE (NEGATIVE); RESPIRATORY SYNCTIAL VIRUS NEGATIVE (NEGATIVE); SARS-CoV-2 Xpert Express NEGATIVE (NEGATIVE)
[2023-04-18 08:28] VITALS: BP 119/71; PULSE 79; RESP 17; O2SAT 97
--- NOTE | 2023-04-18 08:46 | XRAY ---
Indication: Chest pain. Comparison: None Portable chest demonstrates normal heart, lungs, and bony thorax.
== END 2023-04-18 08:37 | disposition home or self-care (01) ==
LOC: ED 06:13
DX: K21.9 Gastro-esophageal reflux disease without esophagitis (principal); J40 Bronchitis, not specified as acute or chronic; R07.9 Chest pain, unspecified
CPT/HCPCS: 0241U; 36000; 36415; 71045; 80053; 84484; 84703; 85025; 85379; 85610; 85730; 93005; 93041; 96374; 99284

== ENCOUNTER 2023-04-19 23:50 | Emergency (ER) | payer SELFPAY ==
[2023-04-20] MEDS ORDERED: BENADRYL 50 MG/ML IV ONE (01:16)
--- NOTE | 2023-04-20 01:20 | ERPHSYRPT ---
- History of Present Illness Time Seen by Provider: 04/20/23 01:19 Source: patient Exam Limitations: no limitations Physician History: Patient is a 27-year-old female presents to our ED for evaluation of tingling sensation and a cramping-like sensation to her bilateral lower extremities. Patient unsure the cause however she correlates it with new medication. Patient currently on amoxicillin Protonix and Mucinex for bronchitis and GERD. Patient denies pain. Symptoms started approximately 930 this evening. Symptoms are constant. Symptoms are moderate in intensity. No specific worsening or improving factors. Patient denies history of the same. She voices no other complaints or concerns at this time. Portions of this note were created with voice recognition technology. 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[employer] - Vaccination Dates Date of 2cond Vaccination (if applicable): n/a Dates if Unknown: N/a - Review of Systems Constitutional: No Symptoms, No Fever, No Chills Eyes: No Symptoms Ears, Nose, & Throat: No Symptoms Respiratory: No Symptoms, No Cough, No Dyspnea Cardiac: No Symptoms, No Chest Pain, No Edema, No Syncope Abdominal/Gastrointestinal: No Symptoms, No Abdominal Pain, No Nausea, No Vomiting, No Diarrhea Genitourinary Symptoms: No Symptoms, No Dysuria Musculoskeletal: No Symptoms, No Back Pain, No Neck Pain Skin: No Symptoms, No Rash Neurological: No Symptoms, No Dizziness, No Focal Weakness, No Sensory Changes Psychological: No Symptoms Endocrine: No Symptoms Hematologic/Lymphatic: No Symptoms Immunological/Allergic: No Symptoms All Other Systems: Reviewed and Negative - Past Medical History Pertinent Past Medical History: Yes Neurological History: No Pertinent History ENT History: No Pertinent History Cardiac History: No Pertinent History Respiratory History: No Pertinent History Endocrine Medical History: No Pertinent History Musculoskeletal History: No Pertinent History GI Medical History: GERD History: No Pertinent History Psycho-Social History: Anxiety Female Reproductive Disorders: No Pertinent History Other Medical History: Failed a Tilt table cardiac test - Past Surgical History Past Surgical History: No Neuro Surgical History: No Pertinent History Cardiac: No Pertinent History Respiratory: No Pertinent History Gastrointestinal: No Pertinent History Genitourinary: No Pertinent History Musculoskeletal: No Pertinent History Female Surgical History: No Pertinent History - Social History Smoking Status: Former smoker How long have you smoked: 5 YEARS Exposure to second hand smoke: Yes Drug Use: none Patient Lives Alone: No - Nursing Vital Signs Nursing Vital Signs: Initial Vital Signs Temperature 98.8 F 04/20/23 01:08 Pulse Rate 76 04/20/23 01:08 Respiratory Rate 16 04/20/23 01:08 Blood Pressure 151/105 04/20/23 01:08 O2 Sat by Pulse Oximetry 98 04/20/23 01:08 Pain Scale Pain Intensity 0 - Physical Exam General Appearance: no apparent distress, alert Eye Exam: PERRL/EOMI, eyes nml inspection Ears, Nose, Throat Exam: normal ENT inspection, TMs normal, pharynx normal, moist mucous membranes Neck Exam: normal inspection, non-tender, supple, full range of motion Respiratory Exam: normal breath sounds, lungs clear, airway intact, No respiratory distress Cardiovascular Exam: regular rate/rhythm, normal heart sounds, normal peripheral pulses Gastrointestinal/Abdomen Exam: soft, normal bowel sounds, No tenderness, No mass Back Exam: normal inspection, normal range of motion, No CVA tenderness, No vertebral tenderness Extremity Exam: normal inspection, normal range of motion, pelvis stable Neurologic Exam: alert, oriented x 3, cooperative, 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, normal mood/affect, nml cerebellar function, nml station & gait, sensation nml, No motor deficits Skin Exam: normal color, warm, dry, No rash Lymphatic Exam: No adenopathy SpO2 Interpretation: normal SpO2: 98 O2 Delivery: Room Air - Course Nursing assessment & vital signs reviewed: Yes Ordered Tests: Active Orders 24 hr Category Date Time Status IV Insertion STAT Care 04/20/23 01:14 Active ACETAMINOPHEN Stat Lab 04/20/23 01:55 Completed CBC W DIFF Stat Lab 04/20/23 01:55 Completed CK (IN-HOUSE) [CK-Creatinine Phosphokinase] Stat Lab 04/20/23 01:55 Completed CMP Stat Lab 04/20/23 01:55 Completed ETHYL ALCOHOL Stat Lab 04/20/23 01:55 Completed MAGNESIUM Stat Lab 04/20/23 01:55 Completed SALICYLATE Stat Lab 04/20/23 01:55 Completed TSH, 3RD Generation Stat Lab 04/20/23 01:55 Completed Urine Triage Profile Stat Lab 04/20/23 01:33 Completed Medication Summary Discontinued Medications Generic Name Dose Route Start Last Admin Trade Name Jacqueline PRN Reason Stop Dose Admin Diphenhydramine HCl 25 mg 04/20/23 01:16 04/20/23 01:40 Diphenhydramine Hcl 50 Mg/Ml Vial IV 04/20/23 01:17 25 mg STAT ONE Administration Diphenhydramine HCl Confirm 04/20/23 01:38 Diphenhydramine Hcl 50 Mg/Ml Vial Administered 04/20/23 01:39 Dose 50 mg .ROUTE [employer] ONE Lab/Rad Data: Laboratory Result Diagrams 04/20/23 01:55 04/20/23 01:55 Laboratory Results 04/20/23 04/20/23 04/20/23 Range/Units 01:55 01:55 01:55 WBC (4.0-10.5) x10^3/uL RBC (4.1-5.4) x10^6/uL Hgb (12.0-16.0) g/dL Hct (35-47) % MCV (78-100) fL MCH (26-32) pg MCHC (32-36) g/dL RDW (11.5-14.0) % Plt Count (150-450) x10^3/uL MPV (7.5-11.0) fL Gran % (36.0-66.0) % Immature Gran % (Auto) (0.00-0.4) % Nucleat RBC Rel Count (0.00-0.1) % Eos # (Auto) (0-0.5) x10^3/uL Immature Gran # (Auto) (0.00-0.03) x10^3u/L Absolute Lymphs (auto) (1.0-4.6) x10^3/uL Absolute Monos (auto) (0.0-1.3) x10^3/uL Absolute Nucleated RBC (0.00-0.01) x10^3u/L Lymphocytes % (24.0-44.0) % Monocytes % (0.0-12.0) % Eosinophils % (0.00-5.0) % Basophils % (0.0-0.4) % Absolute Granulocytes (1.4-6.9) x10^3/uL Basophils # (0-0.4) x10^3/uL Sodium 139 (137-145) mmol/L Potassium 3.5 (3.5-5.1) mmol/L Chloride 108 H (98-107) mmol/L Carbon Dioxide 21 L (22-30) mmol/L Anion Gap 13.3 (5-15) MEQ/L BUN 10 (7-17) mg/dL Creatinine 0.68 (0.52-1.04) mg/dL Estimated GFR 123.9 ML/MIN Glucose 95 (74-106) mg/dL Calcium 9.4 (8.4-10.2) mg/dL Magnesium 2.1 (1.6-2.3) mg/dL Total Bilirubin 0.90 (0.2-1.3) mg/dL AST 18 (14-36) U/L ALT 10 (0-35) U/L Alkaline Phosphatase 84 (38-126) U/L Creatine Kinase 48 (30-135) U/L Serum Total Protein 7.8 (6.3-8.2) g/dL Albumin 4.3 (3.5-5.0) g/dL TSH 3rd Generation 2.480 (0.47-4.68) mIU/L Salicylates < 1.0 L (2-20) mg/dL Urine Opiates Level (NEGATIVE) Ur Methadone (NEGATIVE) Acetaminophen < 10 L (10-30) ug/ml Urine Barbiturates (NEGATIVE) Ur Phencyclidine (PCP) (NEGATIVE) Urine Amphetamine (NEGATIVE) U Benzodiazepine Level (NEGATIVE) Urine Cocaine (NEGATIVE) Urine Marijuana (THC) (NEGATIVE) Ethyl Alcohol < 10 (0-10) mg/dL 04/20/23 04/20/23 Range/Units 01:55 01:33 WBC 13.3 H (4.0-10.5) x10^3/uL RBC 3.90 L (4.1-5.4) x10^6/uL Hgb 11.2 L (12.0-16.0) g/dL Hct 34.5 L (35-47) % MCV 88.5 (78-100) fL MCH 28.7 (26-32) pg MCHC 32.5 (32-36) g/dL RDW 12.0 (11.5-14.0) % Plt Count 313 (150-450) x10^3/uL MPV 9.6 (7.5-11.0) fL Gran % 72.3 H (36.0-66.0) % Immature Gran % (Auto) 0.3 (0.00-0.4) % Nucleat RBC Rel Count 0.0 (0.00-0.1) % Eos # (Auto) 0.03 (0-0.5) x10^3/uL Immature Gran # (Auto) 0.04 H (0.00-0.03) x10^3u/L Absolute Lymphs (auto) 2.81 (1.0-4.6) x10^3/uL Absolute Monos (auto) 0.77 (0.0-1.3) x10^3/uL Absolute Nucleated RBC 0.00 (0.00-0.01) x10^3u/L Lymphocytes % 21.1 L (24.0-44.0) % Monocytes % 5.8 (0.0-12.0) % Eosinophils % 0.2 (0.00-5.0) % Basophils % 0.3 (0.0-0.4) % Absolute Granulocytes 9.60 H (1.4-6.9) x10^3/uL Basophils # 0.04 (0-0.4) x10^3/uL Sodium (137-145) mmol/L Potassium (3.5-5.1) mmol/L Chloride (98-107) mmol/L Carbon Dioxide (22-30) mmol/L Anion Gap (5-15) MEQ/L BUN (7-17) mg/dL Creatinine (0.52-1.04) mg/dL Estimated GFR ML/MIN Glucose (74-106) mg/dL Calcium (8.4-10.2) mg/dL Magnesium (1.6-2.3) mg/dL Total Bilirubin (0.2-1.3) mg/dL AST (14-36) U/L ALT (0-35) U/L Alkaline Phosphatase (38-126) U/L Creatine Kinase (30-135) U/L Serum Total Protein (6.3-8.2) g/dL Albumin (3.5-5.0) g/dL TSH 3rd Generation (0.47-4.68) mIU/L Salicylates (2-20) mg/dL Urine Opiates Level NEGATIVE (NEGATIVE) Ur Methadone NEGATIVE (NEGATIVE) Acetaminophen (10-30) ug/ml Urine Barbiturates NEGATIVE (NEGATIVE) Ur Phencyclidine (PCP) NEGATIVE (NEGATIVE) Urine Amphetamine NEGATIVE (NEGATIVE) U Benzodiazepine Level NEGATIVE (NEGATIVE) Urine Cocaine NEGATIVE (NEGATIVE) Urine Marijuana (THC) NEGATIVE (NEGATIVE) Ethyl Alcohol (0-10) mg/dL - Progress Progress: improved Progress Note: Patient reassessed. Symptoms significantly improved after administration of Benadryl. Workup essentially nonremarkable. There is a leukocytosis however patient is currently being treated for bronchitis. Toxicology screen negative. Will discharge patient home. Patient agrees to follow-up with her primary care doctor within 48 hours for evaluation. She voices no other complaints or concerns at this time. Portions of this note were created with voice recognition technology. There may be grammatical, spelling, punctuation or sound alike errors Complexity problem addressed is moderate acute complicated No critical care time Complex of data reviewed and analyzed is moderate. Test ordered test reviewed. Results analyzed and correlated clinically with history and physical exam. Risk of complication and or risk of morbidity/mortality of patient management is low Vital stable. Time spent to discharge patient is approximately 15 minutes. Plan of care established for shared decision making. No social determinants of health present impede follow-up Portions of this note were created with voice recognition technology. There may be grammatical, spelling, punctuation or sound alike errors 04/20/23 03:29 Counseled pt/family regarding: lab results, diagnosis, need for follow-up - Departure Departure Disposition: Home Clinical Impression: Lower extremity tremors Condition: Stable Critical Care Time: No Referrals: DOCTOR,NO FAMILY [Primary Care Provider] - Follow up/PCP as directed NUBIA HURD DO [ACTIVE STAFF] - Follow up/PCP as directed Additional Instructions: Discharge/Care Plan ENAVAZQUEZ RIVAS was seen on 04/20/23 in the Emergency Room. The patient was counseled regarding Diagnosis,Lab results, Imaging studies, need for follow up and when to return to the Emergency Room. Prescriptions given: Discharge Note I have spoken with the patient and/or caregivers. I have explained the patient's condition, diagnosis and treatment plan based on the information available to me at this time. I have answered the patient's and/or caregiver's questions and addressed any concerns. The patient and/or caregivers have as good understanding of the patient's diagnosis, condition and treatment plan as can be expected at this point. The vital signs have been stable. The patient's condition is stable and appropriate for discharge from the emergency department. The patient will pursue further outpatient evaluation with the primary care physician or other designated or consulting physician as outlined in the discharge instructions. The patient and/or caregivers are agreeable to this plan of care and follow-up instructions have been explained in detail. The patient and/or caregivers have received these instruction. The patient/and or caregivers are aware that any significant change in condition or worsening of symptoms should prompt an immediate return to this or the closest emergency department or call 911.
[2023-04-20 01:23] VITALS: TEMP 98.8
[2023-04-20] MEDS ORDERED: BENADRYL 50 MG/ML ONE (01:38)
[2023-04-20 01:58] LABS: Amphetamine,Urine NEGATIVE (NEGATIVE); Barbiturate,Urine NEGATIVE (NEGATIVE); Benzodiazepine,Urine NEGATIVE (NEGATIVE); Cocaine,Urine NEGATIVE (NEGATIVE); Methadone,Urine NEGATIVE (NEGATIVE); Opiate,Urine NEGATIVE (NEGATIVE); PCP,Urine NEGATIVE (NEGATIVE); THC,Urine NEGATIVE (NEGATIVE)
[2023-04-20 02:01] LABS: BASOPHIL % 0.3 % (0.0-0.4); Basophil (Absolute #) 0.04 x10^3/uL (0-0.4); Eosinophil % 0.2 % (0.00-5.0); Eosinophil (Absolute #) 0.03 x10^3/uL (0-0.5); Hematocrit 34.5 % (35-47); Hemoglobin 11.2 g/dL (12.0-16.0); IMMATURE GRAN # 0.04 x10^3u/L (0.00-0.03); IMMATURE GRAN % 0.3 % (0.00-0.4); Lymphocyte (Absolute #) 2.81 x10^3/uL (1.0-4.6); Lymphocytes % 21.1 % (24.0-44.0); Mean Cell Volume 88.5 fL (78-100); Mean Corpuscular Hemoglobin 28.7 pg (26-32); Mean Corpuscular Hgb Concent. 32.5 g/dL (32-36); Mean Platelet Volume 9.6 fL (7.5-11.0); Monocyte (Absolute #) 0.77 x10^3/uL (0.0-1.3); Monocytes % 5.8 % (0.0-12.0); Neutrophil % 72.3 % (36.0-66.0); Platelet Count 313 x10^3/uL (150-450); White Blood Count 13.3 x10^3/uL (4.0-10.5)
[2023-04-20 02:20] LABS: ACETAMINOPHEN < 10 ug/ml (10-30); ALBUMIN 4.3 g/dL (3.5-5.0); ANION GAP 13.3 MEQ/L (5-15); BILIRUBIN,TOTAL 0.9 mg/dL (0.2-1.3); Calcium 9.4 mg/dL (8.4-10.2); Creatinine 1 0.68 mg/dL (0.52-1.04); EST GLOMERULAR FILTRATION RATE 123.9 ML/MIN; ETHYL ALCOHOL < 10 mg/dL (0-10); MAGNESIUM 2.1 mg/dL (1.6-2.3); Potassium 3.5 mmol/L (3.5-5.1); SALICYLATE < 1.0 mg/dL (2-20); Total Protein 7.8 g/dL (6.3-8.2)
[2023-04-20 02:57] LABS: TSH, 3RD Generation 2.48 mIU/L (0.47-4.68)
[2023-04-20 03:54] VITALS: BP 103/75; PULSE 84; RESP 16; O2SAT 99
== END 2023-04-20 03:57 | disposition home or self-care (01) ==
LOC: ED 23:50
DX: R25.1 Tremor, unspecified (principal); R25.2 Cramp and spasm; R20.2 Paresthesia of skin; Z79.899 Other long term (current) drug therapy
CPT/HCPCS: 36000; 36415; 80053; 80143; 80179; 80307; 82077; 82550; 83735; 84443; 85025; 96374; 99283; J1200

== ENCOUNTER 2023-06-19 12:34 | Emergency (ER) | payer SELFPAY ==
[2023-06-19 12:46] VITALS: TEMP 97.5
[2023-06-19] MEDS: BABY ASPIRIN 81 MG CHEW PO ONE (12:52)
[2023-06-19] MEDS ORDERED: BABY ASPIRIN 81 MG CHEW ONE (12:52)
--- NOTE | 2023-06-19 13:00 | ERPHSYRPT ---
- History of Present Illness Time Seen by Provider: 06/19/23 12:36 Historian: patient Exam Limitations: no limitations Patient Subjective Stated Complaint: C/O chest tightness that started yesterday around noon Triage Nursing Assessment: Patient ambulated back to ER. She is alert and oriented. Patient giggling during assessment. No SOB. No cough. SKin tone normal. GRANGER WNL. No edema. Physician History: 28 years old female presented in the ER with complains of chest pain. Patient reports chest tightness substernally started yesterday, improved and again having some discomfort this morning with some radiation to the back. Patient also reports having some palpitations without difficulty breathing. Does have history of palpitations in the past. Denies any recent fever chills or cough. Aspirin Treatment Today: unknown Allergies/Adverse Reactions: Red food dye Adverse Reaction (Severe, Uncoded 06/19/23 12:37) Rash and face swelling Hx Tetanus, Diphtheria Vaccination/Date Given: Yes Hx Influenza Vaccination/Date Given: No Hx Pneumococcal Vaccination/Date Given: No Immunizations Up to Date: Yes Travel Risk - International Travel Have you traveled outside of the country in past 3 weeks: No - Coronavirus Screening Are you exhibiting any of the following symptoms?: No Close contact with a COVID-19 positive Pt in past 14-21 Days: No - Vaccine Status Have you recieved a Covid-19 vaccination: Yes Broadcast News 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 - Review of Systems Constitutional: No Symptoms Eyes: No Symptoms Ears, Nose, & Throat: No Symptoms Respiratory: No Symptoms Cardiac: Chest Pain, Palpitations Abdominal/Gastrointestinal: No Symptoms Genitourinary Symptoms: No Symptoms Musculoskeletal: No Symptoms Skin: No Symptoms Neurological: No Symptoms Psychological: No Symptoms Endocrine: No Symptoms Hematologic/Lymphatic: No Symptoms Immunological/Allergic: No Symptoms - Past Medical History Pertinent Past Medical History: Yes Neurological History: No Pertinent History ENT History: No Pertinent History Cardiac History: No Pertinent History Respiratory History: No Pertinent History Endocrine Medical History: No Pertinent History Musculoskeletal History: No Pertinent History GI Medical History: GERD History: No Pertinent History Psycho-Social History: Anxiety Female Reproductive Disorders: No Pertinent History Other Medical History: Failed a Tilt table cardiac test - Past Surgical History Past Surgical History: No Neuro Surgical History: No Pertinent History Cardiac: No Pertinent History Respiratory: No Pertinent History Gastrointestinal: No Pertinent History Genitourinary: No Pertinent History Musculoskeletal: No Pertinent History Female Surgical History: No Pertinent History - Social History Smoking Status: Former smoker How long have you smoked: 5 YEARS Exposure to second hand smoke: Yes Drug Use: none Patient Lives Alone: No - Female History Hx Last Menstrual Period: Just ended Hx Now: No - Nursing Vital Signs Nursing Vital Signs: Initial Vital Signs Pulse Rate 66 06/19/23 12:37 Respiratory Rate 9 L 06/19/23 12:37 Blood Pressure 125/86 06/19/23 12:37 O2 Sat by Pulse Oximetry 99 06/19/23 12:37 Pain Scale Pain Intensity 6 - Physical Exam General Appearance: no apparent distress, alert Eye Exam: PERRL/EOMI Ears, Nose, Throat Exam: normal ENT inspection Neck Exam: normal inspection, non-tender, supple, full range of motion Respiratory Exam: normal breath sounds, lungs clear Cardiovascular Exam: regular rate/rhythm, normal heart sounds Gastrointestinal/Abdomen Exam: soft, normal bowel sounds, No tenderness Back Exam: normal inspection Extremity Exam: normal inspection, normal range of motion Neurologic Exam: alert, oriented x 3, cooperative Skin Exam: normal color SpO2 Interpretation: normal SpO2: 100 O2 Delivery: Room Air - Course EKG Interpreted by Me: RATE (70), Sinus Rhythm, NORMAL AXIS, NORMAL INTERVALS, NORMAL QRS Ordered Tests: Medication Summary Discontinued Medications Generic Name Dose Route Start Last Admin Trade Name Dajuanq PRN Reason Stop Dose Admin Aspirin 324 mg 06/19/23 12:47 06/19/23 12:52 Aspirin 81 Mg Tab.Chew PO 06/19/23 12:48 324 mg STAT ONE Administration Aspirin Confirm 06/19/23 12:52 Aspirin 81 Mg Tab.Chew Administered 06/19/23 12:53 Dose 324 mg .ROUTE .[facility] Lab/Rad Data: Laboratory Result Diagrams 06/19/23 13:20 06/19/23 13:20 Laboratory Results 06/19/23 06/19/23 06/19/23 Range/Units 13:20 13:20 13:20 WBC (4.0-10.5) x10^3/uL RBC (4.1-5.4) x10^6/uL Hgb (12.0-16.0) g/dL Hct (35-47) % MCV (78-100) fL MCH (26-32) pg MCHC (32-36) g/dL RDW (11.5-14.0) % Plt Count (150-450) x10^3/uL MPV (7.5-11.0) fL Gran % (36.0-66.0) % Immature Gran % (Auto) (0.00-0.4) % Nucleat RBC Rel Count (0.00-0.1) % Eos # (Auto) (0-0.5) x10^3/uL Immature Gran # (Auto) (0.00-0.03) x10^3u/L Absolute Lymphs (auto) (1.0-4.6) x10^3/uL Absolute Monos (auto) (0.0-1.3) x10^3/uL Absolute Nucleated RBC (0.00-0.01) x10^3u/L Lymphocytes % (24.0-44.0) % Monocytes % (0.0-12.0) % Eosinophils % (0.00-5.0) % Basophils % (0.0-0.4) % Absolute Granulocytes (1.4-6.9) x10^3/uL Basophils # (0-0.4) x10^3/uL D-Dimer < 0.19 (0.0-0.50) mg/L Sodium 141 (135-145) mmol/L Potassium 4.0 (3.5-5.1) mmol/L Chloride 107 (98-107) mmol/L Carbon Dioxide 21 L (22-30) mmol/L Anion Gap 16.1 H (5-15) MEQ/L BUN 11 (7-17) mg/dL Creatinine 0.67 (0.52-1.04) mg/dL Estimated GFR 123.5 ML/MIN Glucose 88 (74-106) mg/dL Calcium 9.3 (8.4-10.2) mg/dL Total Bilirubin 1.10 (0.2-1.3) mg/dL AST 22 (14-36) U/L ALT 24 (0-35) U/L Alkaline Phosphatase 76 (38-126) U/L Creatine Kinase 49 (30-135) U/L Troponin I < 0.012 (0.000-0.034) ng/mL NT-Pro-B Natriuret Pep 36.4 (<300) pg/mL Serum Total Protein 7.8 (6.3-8.2) g/dL Albumin 4.5 (3.5-5.0) g/dL 06/19/23 Range/Units 13:20 WBC 8.4 (4.0-10.5) x10^3/uL RBC 4.38 (4.1-5.4) x10^6/uL Hgb 12.3 (12.0-16.0) g/dL Hct 38.2 (35-47) % MCV 87.2 (78-100) fL MCH 28.1 (26-32) pg MCHC 32.2 (32-36) g/dL RDW 12.2 (11.5-14.0) % Plt Count 342 (150-450) x10^3/uL MPV 9.5 (7.5-11.0) fL Gran % 73.4 H (36.0-66.0) % Immature Gran % (Auto) 0.2 (0.00-0.4) % Nucleat RBC Rel Count 0.0 (0.00-0.1) % Eos # (Auto) 0.04 (0-0.5) x10^3/uL Immature Gran # (Auto) 0.02 (0.00-0.03) x10^3u/L Absolute Lymphs (auto) 1.79 (1.0-4.6) x10^3/uL Absolute Monos (auto) 0.36 (0.0-1.3) x10^3/uL Absolute Nucleated RBC 0.00 (0.00-0.01) x10^3u/L Lymphocytes % 21.4 L (24.0-44.0) % Monocytes % 4.3 (0.0-12.0) % Eosinophils % 0.5 (0.00-5.0) % Basophils % 0.2 (0.0-0.4) % Absolute Granulocytes 6.14 (1.4-6.9) x10^3/uL Basophils # 0.02 (0-0.4) x10^3/uL D-Dimer (0.0-0.50) mg/L Sodium (135-145) mmol/L Potassium (3.5-5.1) mmol/L Chloride (98-107) mmol/L Carbon Dioxide (22-30) mmol/L Anion Gap (5-15) MEQ/L BUN (7-17) mg/dL Creatinine (0.52-1.04) mg/dL Estimated GFR ML/MIN Glucose (74-106) mg/dL Calcium (8.4-10.2) mg/dL Total Bilirubin (0.2-1.3) mg/dL AST (14-36) U/L ALT (0-35) U/L Alkaline Phosphatase (38-126) U/L Creatine Kinase (30-135) U/L Troponin I (0.000-0.034) ng/mL NT-Pro-B Natriuret Pep (<300) pg/mL Serum Total Protein (6.3-8.2) g/dL Albumin (3.5-5.0) g/dL - Progress Progress: improved, re-examined Air Movement: good Progress Note: 06/19/23 14:37 28 years old is evaluated in the ER for chest tightness/pain since yesterday. Patient pain is improved on presentation in the ER with minimal tightness. She is given aspirin. EKG showed normal sinus rhythm with no acute ischemic changes and negative troponins. Chest x-ray negative for any acute cardiopulmonary findings reviewed by me, official report is pending. Negative troponins and D- dimers. Unremarkable chemistries. Normal white count. Patient has a stable vitals with oxygen saturation of 99% on room air. Tightness in the chest could be secondary to vaping. Less likely cardiac in origin and with the pain going on since yesterday 1 negative troponins it is enough to rule out. Recommended outpatient follow-up with primary care and cardiology. Discussed signs symptoms of worsening needing return to ER which she seems understanding. Stable for discharge. Blood Culture(s) Obtained: No Antibiotics given: No Counseled pt/family regarding: lab results, diagnosis, need for follow-up, rad results, smoking cessation Medical Desision Making - Independent Historian Additional History obtained from: Spouse - Diagnostic Testing Diagnostic test were ordered, analyzed, and reviewed by me: Yes Radiological Interpretation: Interpreted by me, Reviewed by me - Risk of complications The pt has a mod risk of morbidity or mortality based on: Need for prescription drug management - Departure Departure Disposition: Home Clinical Impression: Atypical chest pain Condition: Stable Critical Care Time: No Referrals: DOCTOR,NO FAMILY [Primary Care Provider] - Follow up/PCP as directed NUBIA HURD DO [ACTIVE STAFF] - Follow up with PCP 1 day ANDREW JOHNSTON [CONSULTING PHYSICIAN] - Follow up/PCP as directed (call tomorrow for appointment ) Instructions: Angina (DC) Additional Instructions: Do not smoke. Use inhaler as needed for chest tightness. Follow-up with primary care for reevaluation and may need referral for cardiology. Return to ER for any worsening. Prescriptions: Albuterol Sulfate [Albuterol Sulfate Hfa] 8.5 gm IH Q6H PRN 7 Days #1 inh PRN Reason: Cough
[2023-06-19 13:22] LABS: Absolute Neutrophil Ct (ANC) 6.14 x10^3/uL (1.4-6.9); BASOPHIL % 0.2 % (0.0-0.4); Basophil (Absolute #) 0.02 x10^3/uL (0-0.4); Eosinophil % 0.5 % (0.00-5.0); Eosinophil (Absolute #) 0.04 x10^3/uL (0-0.5); Hematocrit 38.2 % (35-47); Hemoglobin 12.3 g/dL (12.0-16.0); IMMATURE GRAN # 0.02 x10^3u/L (0.00-0.03); IMMATURE GRAN % 0.2 % (0.00-0.4); Lymphocyte (Absolute #) 1.79 x10^3/uL (1.0-4.6); Lymphocytes % 21.4 % (24.0-44.0); Mean Cell Volume 87.2 fL (78-100); Mean Corpuscular Hemoglobin 28.1 pg (26-32); Mean Corpuscular Hgb Concent. 32.2 g/dL (32-36); Mean Platelet Volume 9.5 fL (7.5-11.0); Monocyte (Absolute #) 0.36 x10^3/uL (0.0-1.3); Monocytes % 4.3 % (0.0-12.0); Neutrophil % 73.4 % (36.0-66.0); Platelet Count 342 x10^3/uL (150-450); Red Blood Count 4.38 x10^6/uL (4.1-5.4); Red Cell Distribution Width 12.2 % (11.5-14.0); White Blood Count 8.4 x10^3/uL (4.0-10.5)
[2023-06-19 13:45] LABS: ALBUMIN 4.5 g/dL (3.5-5.0); ANION GAP 16.1 MEQ/L (5-15); BILIRUBIN,TOTAL 1.1 mg/dL (0.2-1.3); Calcium 9.3 mg/dL (8.4-10.2); Creatinine 1 0.67 mg/dL (0.52-1.04); EST GLOMERULAR FILTRATION RATE 123.5 ML/MIN; NT PRO BNPII 36.4 pg/mL (<300); Total Protein 7.8 g/dL (6.3-8.2)
[2023-06-19 14:40] VITALS: BP 110/74; PULSE 65; RESP 14; O2SAT 100
--- NOTE | 2023-06-19 18:32 | XRAY ---
Indication: Chest pain/tightness. Comparison: April 18, 2023 Portable chest again demonstrates normal heart, lungs, and bony thorax.
== END 2023-06-19 14:44 | disposition home or self-care (01) ==
LOC: ED 12:34
DX: R07.9 Chest pain, unspecified (principal)
CPT/HCPCS: 36415; 71045; 80053; 82550; 83880; 84484; 85025; 85379; 93005; 93041; 99284; A9270-GY